=== PATIENT | male | born 1975 | race Hispanic/Latino ===

== ENCOUNTER 2022-02-16 16:16 | Emergency (ER) | payer OTHER, SELFPAY ==
[2022-02-16 16:30] VITALS: BP 103/54; PULSE 80; RESP 14; TEMP 37.4; O2SAT 99
--- NOTE | 2022-02-16 16:47 | ED.SOB ---
HPI - SOB/Dyspnea General Chief Complaint: Nausea/Vomiting/Diarrhea Stated Complaint: n/v/d Source: patient and RN notes reviewed Mode of arrival: ambulatory Limitations: no limitations History of Present Illness HPI Narrative: 46-year-old male presented for complaint of nausea, vomiting, diarrhea today, endorses sinus congestion, ear pressure and mild cough, and endorses last night waking up ready with body aches. He has taken Tylenol cold medicine. Denies chest pain, shortness of breath, wheezing, hematochezia, melena. Denies sick contacts. Related Data Home Medications Medication Instructions Recorded Confirmed atorvastatin 10 mg tablet 10 mg PO DAILY 02/16/22 02/16/22 ergocalciferol (vitamin D2) 1,250 1,250 mcg PO WEEKLY 02/16/22 02/16/22 mcg (50,000 unit) capsule (Vitamin D2) furosemide 40 mg tablet 40 mg PO DAILY 02/16/22 02/16/22 omeprazole 20 mg capsule,delayed 20 mg PO DAILY 02/16/22 02/16/22 release potassium chloride 10 mEq 10 meq PO DAILY 02/16/22 02/16/22 tablet,extended release Allergies Allergy/AdvReac Type Severity Reaction Status Date / Time aspirin AdvReac Ulcers Verified 02/16/22 16:44 Review of Systems Review of Systems: CONSTITUTIONAL: Endorses body aches, fever, chills ENT: Denies rhinorrhea, congestion CARDIOVASCULAR: Denies chest pain, palpitations, or edema. RESPIRATORY: Denies dyspnea. GASTROINTESTINAL: Endorses nausea, vomiting, diarrhea. Denies abdominal pain,hematochezia, melena, hematemesis GENITOURINARY: Denies dysuria, hematuria, or CVA tenderness. SKIN: Denies rash, itching, or wounds. MUSCULOSKELETAL: Denies back pain NEUROLOGIC: Denies headache, numbness, tingling, or weakness. All systems reviewed & are unremarkable except as noted in HPI and below PMFSH Comments At time of signature, I have reviewed and agree with nursing past medical, surgical, social and family history unless otherwise noted. Please see nursing chart for further information. There is no relevant family history pertinent to the presenting complaint Exam Narrative: GENERAL: ill-appearing, non toxic EYES: EOMI. Conjunctivae normal. ENT: Mucous membranes pink and moist. CHEST: No respiratory distress. Clear to auscultation. HEART: Regular rate and rhythm. No murmur appreciated. Normal peripheral pulses. ABDOMEN: abd soft, round, nondistended, normal active bowel sounds. Nontender abdomen SKIN: Warm, dry, no rash. Capillary refill normal. Normal skin turgor. NEURO: No focal deficits. Alert and oriented x3. Course Course Emergency Course: Patient is aware of diagnosis, understands and agrees to treatment plan. Anticipatory guidance given. Patient agrees to follow-up as directed and is aware of reasons to seek care at the emergency department. Portions of this record may have been created with voice recognition software Level of Care: Express Care Visit Vital Signs Vital signs: Vital Signs Temperature 99.3 F 02/16/22 16:30 Pulse Rate 80 02/16/22 16:30 Respiratory Rate 14 02/16/22 16:30 Blood Pressure 103/54 L 02/16/22 16:30 Pulse Oximetry 99 02/16/22 16:30 Oxygen Delivery Room Air 02/16/22 16:30 Temperature 99.3 F 02/16/22 16:30 Pulse Rate 80 02/16/22 16:30 Respiratory Rate 14 02/16/22 16:30 Blood Pressure 103/54 L 02/16/22 16:30 Pulse Oximetry 99 02/16/22 16:30 Oxygen Delivery Room Air 02/16/22 16:30 MDM - SOB/Dyspnea MDM Narrative Medical decision making narrative: Patient states he took a COVID test at home last night, declines additional testing. Advised to consider himself COVID-positive and quarantine, recheck. Advised supportive measures for gastroenteritis and viral illnesses, and signs/symptoms to go to the ER. Pt is appropriate for outpt treatment and f/u. Differential Diagnosis Differential diagnosis: Likely other (Viral illness, AAA, gastroenteritis, gastritis, appendicitis, pancreatitis, bowel obstruction, bowel
== END 2022-02-16 17:01 | disposition home or self-care (01) ==
PROVIDERS: Emergency Provider Nurse Practitioner Family; PCP Nurse Practitioner Family
DX: B34.9 Viral infection, unspecified (principal)
CPT/HCPCS: 99203; G0463